=== PATIENT | female | born 2000 | race Two or more races ===

== ENCOUNTER → 2022-02-27 | Emergency (ER) | payer SELFPAY ==
[~2022-02-27] VITALS: Ht 154.9 cm; Wt 74.8 kg
[~2022-02-27] MED LIST: ALBU108A5 IN; AZIT500T66 PO; LIDOCAINE 1%HCL (LOCAL ANESTH) 10 ML MDV ONE; cefTRIAXone SOD 1,000 MG VL IM ONE; methylPREDNISolone SOD SUCC 125 MG/2 ML VL IM ONE
[2022-02-27 18:09] VITALS: BP 111/72
== END | disposition home or self-care (01) ==
LOC: ER 17:07
DX: J03.90 Acute tonsillitis, unspecified (principal); J45.909 Unspecified asthma, uncomplicated
CPT/HCPCS: 71046; 96372; 99284; J0696; J2001; J2930